=== PATIENT | male | born 1990 | race Caucasian/White ===

== ENCOUNTER 2017-02-08 14:25 | Emergency (ER) | payer OTHER ==
[2017-02-08 14:39] VITALS: BP 145/86
--- NOTE | 2017-02-08 15:03 | UC ---
Ear Complaint HPI - HPI Summary HPI Summary: 26 year old male presents with left facial tingling and rash for 1 month - History of Current Complaint Chief Complaint: UCEar Stated Complaint: SIDE OF FACE TINGLES EAR RINGS Time Seen by Provider: 02/08/17 14:54 Hx Obtained From: Patient Onset/Duration: Sudden Onset Severity Initially: Moderate Severity Currently: Moderate Pain Scale Used: 0-10 Numeric - 1 - Allergies/Home Medications Allergies/Adverse Reactions: Allergies Allergy/AdvReac Type Severity Reaction Status Date / Time Penicillins [PCN] Allergy Rash Verified 02/08/17 14:39 Home Medications: Home Medications NK [No Home Medications Reported] 02/08/17 [History Confirmed 02/08/17] PMH/Surg Hx/FS Hx/Imm Hx Previously Healthy: Yes - Surgical History Surgical History: Yes Surgery Procedure, Year, and Place: 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; fibroma (non- cancerous) - Social History Alcohol Use: Occasionally Substance Use Type: None Smoking Status (MU): Light Every Day Tobacco Smoker Amount Used/How Often: 1/2 pk/day - Immunization History Most Recent Influenza Vaccination: none Review of Systems Constitutional: Negative Skin: Rash Eyes: Negative ENT: Negative Respiratory: Negative Cardiovascular: Negative Gastrointestinal: Negative Genitourinary: Negative Motor: Negative Neurovascular: Negative Musculoskeletal: Negative Neurological: Negative Psychological: Negative All Other Systems Reviewed And Are Negative: Yes Physical Exam Triage Information Reviewed: Yes Appearance: Well-Appearing Vital Signs: Initial Vital Signs Temp 37.2 C 02/08/17 14:28 Pulse 90 02/08/17 14:28 Resp 16 02/08/17 14:28 BP 145/86 02/08/17 14:28 Pulse Ox 100 02/08/17 14:28 Vital Signs Reviewed: Yes Eye Exam: Normal ENT Exam: Normal Dental Exam: Normal Neck exam: Normal Neck: Positive: 1 Respiratory Exam: Normal Cardiovascular Exam: Normal Abdominal Exam: Normal Musculoskeletal Exam: Normal Neurological Exam: Normal Psychological Exam: Normal Skin Exam: Normal Ear Complaint Course/Dx - Differential Dx/Diagnosis Provider Diagnoses: left facial tingling. left sided facial rash Discharge - Discharge Plan Condition: Stable Disposition: HOME Patient Education Materials: Trigeminal Neuralgia (ED) Referrals: Karina Lassiter MD [Medical Doctor] -
== END 2017-02-08 15:19 | disposition home or self-care (01) ==
LOC: UCEAST 14:25
DX: R20.2 Paresthesia of skin (principal); Z88.0 Allergy status to penicillin; F17.210 Nicotine dependence, cigarettes, uncomplicated; R21 Rash and other nonspecific skin eruption
CPT/HCPCS: 99201; G0463